=== PATIENT | female | born 1990 | race Caucasian/White ===

== ENCOUNTER 2018-05-05 07:26 | Inpatient (IN) | payer OTHER ==
[~2018-05-05] VITALS: Ht 175.3 cm; Wt 80.9 kg
[2018-05-05] VITALS (21 sets, daily range): BP systolic 99–155; BP diastolic 55–84; PULSE 67–91; TEMP 98.1–98.5
[~2018-05-05 07:26] MED LIST: FAMOTIDINE20 MG PO; MOTRIN 600600 MG/TAB PO; NO HOME MEDICATIONS; PERCOCET 325 MG1 TA2 PO
[2018-05-05] MEDS ORDERED: PRENATAL (07:47)
[2018-05-05] MEDS ORDERED: VITAMIN D 50,1.25 MG PO (07:47)
[2018-05-05] MEDS ORDERED: LOTRIMIN1% TP (07:48)
[2018-05-05 08:45] LABS: BASO % 0.3 % (0.0-2.0); EOS % 0.2 % (0-4.0); GRAN # 9.7 (1.4-6.5); GRAN % 78.8 % (42.2-75.2); HEMOGLOBIN 11.1 g/dl (12.5-16.0); LYMPH # 1.8 (1.2-3.4); LYMPH % 14.3 % (20.0-51.0); MEAN CELL VOLUME 87 fl (80.0-100.0); MEAN CORPUSCULAR HEMOGLOBIN 29 pg (27.0-31.0); MEAN CORPUSCULAR HGB CONC 34 g/dl (33.0-37.0); MONO # 0.7 (0.1-0.6); MONO % 5.9 % (1.7-9.3); PLATELET COUNT 209 K/mm3 (130-400); RED BLOOD COUNT 3.78 M/mm3 (4.10-5.30); REDCELL DISTRIBUTION WIDTH-CV 13.4 % (11.5-14.5)
[2018-05-05 08:53] LABS: HEMATOCRIT 32.8 % (37.0-47.0)
[2018-05-06] VITALS: BP 121/76; PULSE 81; TEMP 98
[2018-05-06 04:09] VITALS: BP 99/65; PULSE 86; TEMP 97.8
[2018-05-06 08:17] VITALS: BP 113/72; PULSE 74
[2018-05-06] MEDS ORDERED: IBU800 M1 PO (10:42)
[2018-05-06] MEDS ORDERED: PERCOCET 325 MG1 TA2 PO (10:43)
== END 2018-05-06 17:15 | disposition home or self-care (01) | DRG 775 ==
LOC: LDRO 07:26 → LDR 07:54 → OB 07:54
PROVIDERS: Obstetrics & Gynecology
PROC: 10E0XZZ Delivery of Products of Conception, External Approach (ICD-10-PCS; principal; 2018-05-05)
PROC: 0HQ9XZZ Repair Perineum Skin, External Approach (ICD-10-PCS; 2018-05-05)
PROC: 0UQMXZZ Repair Vulva, External Approach (ICD-10-PCS; 2018-05-05)
DX: O34.211 Maternal care for low transverse scar from previous cesarean delivery (principal); O69.81X0 Labor and delivery complicated by cord around neck, without compression, not applicable or unspecified; O70.0 First degree perineal laceration during delivery; O71.82 Other specified trauma to perineum and vulva; Z3A.39 39 weeks gestation of pregnancy; Z37.0 Single live birth
CPT/HCPCS: J2590; J2791; J2795; J7120

== ENCOUNTER 2020-07-18 14:29 | Emergency (ER) | payer OTHER ==
[~2020-07-18] VITALS: Ht 175.3 cm; Wt 77.3 kg
[~2020-07-18 14:29] MED LIST changes: +IBU800 M1 PO; +LOTRIMIN1% TP; +PRENATAL; +VITAMIN D 50,1.25 MG PO
[2020-07-18 14:48] VITALS: TEMP 97.9
[2020-07-18] MEDS ORDERED: LEXAPRO20 MG PO (15:02)
[2020-07-18 16:21] LABS: BASO # 0.1 (0.0-0.2); BASO % 0.5 % (0.0-2.0); EOS # 0.1 (0.0-0.7); EOS % 0.5 % (0-4.0); HEMATOCRIT 38.3 % (37.0-47.0); LYMPH # 2.1 (1.2-3.4); LYMPH % 17.5 % (20.0-51.0); MEAN CELL VOLUME 87 fl (80.0-100.0); MEAN CORPUSCULAR HEMOGLOBIN 30 pg (27.0-31.0); MEAN CORPUSCULAR HGB CONC 34 g/dl (33.0-37.0); MEAN PLATELET VOLUME 9.2 fl (7.4-10.4); MONO # 0.6 (0.1-0.6); MONO % 5.2 % (1.7-9.3); PLATELET COUNT 243 K/mm3 (130-400); RED BLOOD COUNT 4.39 M/mm3 (4.10-5.30); REDCELL DISTRIBUTION WIDTH-CV 12.3 % (11.5-14.5)
[2020-07-18 16:27] LABS: ALANINE AMINOTRANSFERASE 21 U/L (4-34); ALBUMIN 4.9 gm/dL (3.5-5.0); ALKALINE PHOSPHATASE 66 U/L (50-136); ANION GAP 11 mmol/L (7-16); AST,SGOT 24 U/L (15-37); BILIRUBIN,TOTAL 0.7 mg/dL (0.0-1.0); BLOOD UREA NITROGEN 13 mg/dL (7-17); CALCIUM 9.3 mg/dL (8.4-10.2); CARBON DIOXIDE 25 mmol/L (22-30); CHLORIDE 102 mmol/L (98-107); CREATININE, serum 0.75 (0.52-1.25); GLUCOSE 101 mg/dL (74-106); SODIUM 138 mmol/L (137-145); TOTAL PROTEIN 8.6 gm/dL (6.4-8.2)
[2020-07-18 16:32] LABS: C-REACTIVE PROTEIN < 0.5 mg/dL (0.0-0.9)
[2020-07-18 17:40] VITALS: BP 106/54; PULSE 72
== END 2020-07-18 17:39 | disposition home or self-care (01) ==
LOC: COL.ER 14:29
PROVIDERS: Nurse Practitioner
DX: R51.9 Headache, unspecified (principal); F41.9 Anxiety disorder, unspecified; Z32.02 Encounter for pregnancy test, result negative
CPT/HCPCS: J1200; J1885; J2765; J7030

== ENCOUNTER → 2020-09-10 | Outpatient (CLI) | payer OTHER ==
[~2020-09-10] MED LIST changes: +LEXAPRO20 MG PO
== END ==
LOC: MC.RAD 12:48
DX: N64.52 Nipple discharge (principal)